=== PATIENT | male | born 1970 | race Caucasian/White ===

== ENCOUNTER 2016-08-19 11:59 | Emergency (ER) | payer OTHER ==
[~2016-08-19] VITALS: Ht 175.3 cm; Wt 90.8 kg
[2016-08-19 12:02] VITALS: TEMP 37.6; Ht 175.3 cm; Wt 90.8 kg
[2016-08-19] MEDS ORDERED: MULT-506 PO (12:38)
[2016-08-19] MEDS ORDERED: PANT40TA PO (12:38)
[2016-08-19] MEDS ORDERED: NAPR1TAB9 PO (12:38)
--- NOTE | 2016-08-19 12:43 | DIAGNOSTIC IMAGING REPORT ---
PA CHEST WITH LEFT-SIDED RIB SERIES CLINICAL HISTORY: Fall with left-sided chest pain. FINDINGS: A PA chest radiograph with 4 additional views from a left-sided rib series is compared to study dated 06/21/2012. The cardiomediastinal silhouette is unremarkable. The lungs and pleural spaces are clear. No pneumothorax is seen. A nondistracted left lateral fifth rib fracture is questioned on the rib series. No additional left-sided rib fracture is identified. There is a comminuted fracture through the mid to distal left clavicle with overriding of the fragments. There is mild thoracic scoliosis. IMPRESSION: 1. The lungs are clear. 2. Question a nondistracted left fifth rib fracture. Correlate for point tenderness. 3. There is a comminuted and overriding fracture through the mid to distal shaft of the left clavicle. Electronically signed by: Reginald Juan M.D. 08/19/2016 12:42 PM Dictated Date/Time: 08/19/2016 12:38 PM
--- NOTE | 2016-08-19 12:44 | DIAGNOSTIC IMAGING REPORT ---
LEFT SHOULDER 3 VIEWS CLINICAL HISTORY: Fall with left shoulder injury. FINDINGS: 3 views of left shoulder are obtained. No prior studies are available for comparison at the time of dictation. The skeletal structures are well mineralized. There is a comminuted fracture through the mid to distal shaft of the left clavicle. There is overriding of the fragments by at least 4.5 cm. The sternoclavicular and acromioclavicular joints appear preserved. Mild overlying soft tissue edema is noted. The glenohumeral articulation is preserved. Calcific tendinopathy is noted in left shoulder. The imaged left lung parenchyma appears clear. IMPRESSION: 1. There is a comminuted fracture through the mid to distal shaft of the left clavicle with overriding of the fragments. 2. No additional fracture is identified. 3. Calcific tendinopathy is noted. Electronically signed by: Reginald Juan M.D. 08/19/2016 12:43 PM Dictated Date/Time: 08/19/2016 12:42 PM
[2016-08-19] MEDS ORDERED: ACETAMINOPHEN 500 MG TAB PO STA (12:59)
[2016-08-19] MEDS ORDERED: OPTIRAY 320 IV PRN (13:30)
--- NOTE | 2016-08-19 14:38 | DIAGNOSTIC IMAGING REPORT ---
CT SCAN OF THE LEFT SHOULDER WITH IV CONTRAST CLINICAL HISTORY: Left clavicular fracture. Clinical concern for vascular injury. COMPARISON STUDY: Radiographs of the left shoulder dated 08/17/2016. TECHNIQUE: Following the IV administration of 118 cc Optiray 20, CT scan of the left shoulder is performed from the lower neck to the humeral shaft. Images are reviewed in the axial, sagittal, and coronal planes. IV contrast was administered without complication. 3-D reformats are created and assessed. CT DOSE: 795.84 mGy.cm FINDINGS: The skeletal structures are well mineralized. There is a comminuted fracture through the mid shaft of the left clavicle with small distracted fragments and overriding of the fragments by approximately 5.5 cm. The acromioclavicular and sternoclavicular joints appear preserved. The proximal humerus and scapula are intact. There is a nondistracted left anterior fifth rib fracture. The remaining visualized ribs appear intact. The visualized left lung parenchyma appears clear. There is no pneumothorax. The thoracic aorta is normal in caliber. The arch demonstrates standard three-vessel anatomy. The left subclavian artery is widely patent, as are the left axillary artery and the visualized portions of the left brachial artery. The subclavian vein is not well opacified. Hemorrhage is seen around the fracture. No active extravasation is seen. No large/organized hematoma is identified. Soft tissue edema is noted in the supraclavicular region. No intramuscular hematoma is seen. There is no left axillary lymphadenopathy. Calcific tendinopathy is noted in the left shoulder. A calcified sialolith is noted in the partially imaged left parotid gland. IMPRESSION: 1. There is a comminuted and overriding fracture through the midshaft of the left clavicle with small distracted fragments and surrounding hemorrhage. No organized hematoma is seen and no active extravasation is identified. 2. Nondistracted left anterior fifth rib fracture. 3. The left subclavian and axillary arteries are widely patent. 4. Calcific tendinopathy is noted in the left shoulder. Dictated: 08/19/2016 2:01 PM Transcribed: 08/19/2016 2:38 PM [email or web address] Electronically signed by: Reginald Juan M.D. 08/19/2016 2:40 PM Dictated Date/Time: 08/19/2016 2:01 PM
[2016-08-19] MEDS ORDERED: HYDR-5688 PO (15:04)
[2016-08-19 15:23] VITALS: BP 138/96; PULSE 79; O2SAT 100
--- NOTE | 2016-08-19 20:32 | EMERGENCY ROOM VISIT NOTE ---
ED Visit Note First contact with patient: 12:05 Chief Complaint: Left shoulder and rib pain. History of Present Illness: Mr. Davidson is a 46-year-old white male who ambulates into the ED accompanied by female friend complaining of left clavicle pain and left posterior rib pain. Patient reports approximately 14 hours ago slipped and fell on ice onto his left shoulder. Since that time he has been having left clavicle and rib pain. The pain has been constant and gradually increasing in intensity. He describes both of these pain is as a sharp sensation. He rates his discomfort 9/10. The pain is nonradiating. Clavicle pain worsens with palpation and any movements of the shoulder. The rib pain worsens with palpation and deep inspiration. He has not identified any alleviating factors related to the pain. He has not taken any medications for pain prior to arrival at the hospital. Associated with his clavicle pain he has noted increasing bruising and swelling. He denies lightheaded or dizziness before the fall, striking his head at the time of the fall, loss of consciousness at the time of the fall, all signs of head injury since the fall, neck pain, shortness of breath, difficulty breathing , abdominal pain, nausea, vomiting, left upper extremity weakness/numbness/ tingling, elbow pain, forearm pain, previous significant injuries or surgeries to the left shoulder or upper extremity. Review of Systems: As noted above in history of present illness. 8 body systems were reviewed and found to be negative as noted above. Past Medical History: Current Medications: Allergies to Medications: Social History: Physical Examination: Vital Signs: Temperature ; Blood Pressure ; Heart Rate ; Respiratory Rate GENERAL: -year-old female in mild to moderate distress due to pain, nontoxic- appearing, afebrile and hemodynamically stable. NEUROLOGICAL: Awake, alert and oriented to person, place and time. Answering questions appropriately and following commands. Normal gait. Good hand eye coordination. No focal motor sensory deficits. SKIN: Warm, dry and pink. No soft tissue eruptions or trauma noted. HEENT: Atraumatic and normocephalic. PERRL. Sclera white and conjunctiva pink. No drainage from naris. Oral cavity moist and pink. Pharynx is nonerythematous or edematous. Speech normal. No lymphadenopathy. Trachea midline. No jugular venous distention. BACK: No tenderness over the bony spine. No CVA tenderness. THORAX: Lungs sounds are clear to auscultation and equal bilaterally with symmetrical chest wall. No wheezing, rales or rhonchi. No crepitus, tenderness , subcutaneous air or deformities noted. HEART: Regular rate and rhythm. No gallops, rubs or murmurs are appreciated. ABDOMEN: Flat, soft and nontender. Positive bowel sounds in all quadrants. No guarding, rigidity or organomegaly. EXTREMITIES: Moves all extremities well on command and with purpose. All distal neurovascular statuses are intact and equal bilaterally. No calf tenderness or cords. ED Course: Patient is assessed as noted above. Left Shoulder X-Rays: Shows a comminuted fracture through the mid and distal shaft of the clavicle with overriding fragments. Left Rib Series: Showing a nondisplaced left fifth rib fracture. No pneumothorax. Left Shoulder CTA with IV Contrast: Were reviewed by myself and read by the radiologist showing the comminuted fracture of the clavicle, anterior fifth rib fracture and left clavicle and axillary vessels are patent. Also noted loli calcified adenopathy in the shoulder. Patient received ice for pain and swelling and at his request was given 1 g of acetaminophen by mouth for pain. Patient was reassessed multiple times during his stay in the emergency department. Patient's case was reviewed with Dr. Sanchez; we agreed on diagnostic approach, treatment, disposition and plan. Patient was placed in a shoulder harness and a shoulder immobilizer. Patient was educated about tonight's findings and instructed on his treatment plan; he verbalizes understanding and agreement with this plan. Clinical Impression: Left, related and overlapping clavicle fracture. Anterior left fifth rib fracture. Status post fall. Disposition: Patient discharged home in stable condition accompanied by his ; prior to departure he was reassessed and subjectively reported he was feeling much better and rated his discomfort 4/10. Plan: Comfort measures were discussed with the patient including the use of shoulder harness, sling, ice and a sliding pain medication scale including [place]; appropriate narcotic precautions were discussed with the patient. Patient was encouraged to call Dr. Pagan's office in the morning and request follow-up care and treatment. Patient was encouraged return the ED for worsening/uncontrolled pain, left upper extremity weakness/numbness/tingling, shortness of breath or any new/ concerning symptoms.
== END 2016-08-19 15:25 | disposition home or self-care (01) ==
LOC: C.EDB 12:01 → C.EDD 15:25
DX: S42.022A Displaced fracture of shaft of left clavicle, initial encounter for closed fracture (principal); S22.32XA Fracture of one rib, left side, initial encounter for closed fracture; W00.9XXA Unspecified fall due to ice and snow, initial encounter

== ENCOUNTER 2017-08-12 20:11 | Emergency (ER) | payer OTHER ==
[~2017-08-12] VITALS: Ht 175.3 cm; Wt 93.9 kg
[~2017-08-12 20:11] MED LIST: MULT-506 PO; NAPR1TAB9 PO; PANT40TA PO
[2017-08-12 20:50] VITALS: Ht 175.3 cm; Wt 93.9 kg
[2017-08-12] MEDS ORDERED: PRED10TA PO (21:10)
[2017-08-12] MEDS ORDERED: FLUT0.15 NAE (21:10)
[2017-08-12] MEDS ORDERED: CLR10 PO (21:10)
[2017-08-12 21:26] LABS: BASO % 0.4 %; BASO ABS # 0.05 K/uL (0-0.2); EOS % 0.2 %; EOS ABS # 0.03 K/uL (0-0.5); HEMATOCRIT 41.3 % (42-52); HEMOGLOBIN 14.4 g/dL (14.0-18.0); IG# 0.03 K/uL (0.00-0.02); LYMPH % 25.5 %; LYMPH ABS # 3.58 K/uL (1.2-3.4); MEAN CELL VOLUME 88.4 fL (80-100); MEAN CORPUSCULAR HEMOGLOBIN 30.8 pg (25-34); MEAN CORPUSCULAR HGB CONC 34.9 g/dl (32-36); MEAN PLATELET VOLUME 10.4 fL (7.4-10.4); MONO % 7.2 %; MONO ABS # 1.01 K/uL (0.11-0.59); NEUT % 66.5 %; NEUT ABS # 9.36 K/uL (1.4-6.5); PLATELET COUNT 291 K/uL (130-400); RED CELL DISTRIBUTION WIDTH CV 13.5 % (11.5-14.5); RED CELL DISTRIBUTION WIDTH SD 43.5 fL (36.4-46.3); WHITE BLOOD COUNT 14.06 K/uL (4.8-10.8)
[2017-08-12 21:42] LABS: ALBUMIN 3.9 gm/dl (3.4-5.0); CREATININE 0.93 mg/dl (0.60-1.40); POTASSIUM 3.7 mmol/L (3.5-5.1)
[2017-08-12 21:45] LABS: TOTAL PROTEIN 8.2 gm/dl (6.4-8.2)
--- NOTE | 2017-08-12 21:50 | DIAGNOSTIC IMAGING REPORT ---
MASTOIDS-ORB/SELLA/TEMP W/O CLINICAL HISTORY: right otalgia, mastoid tenderness pain TECHNIQUE: Transaxial acquisition with multi axial reformatted images COMPARISON STUDY: None FINDINGS: The right as well as left mastoid air cells are primarily clear. Right mastoid air cells show no evidence for a destructive process. The ossicles of the middle ear appear intact. Tympanic membrane and scutum show no evidence for disruption. The attic is clear. The right external auditory canal is patent. The left external auditory canal shows evidence for soft tissue lateral as well as medial to the tympanic membrane. The tympanic membrane specifically is not identified as a separate entity. The ossicles of the middle ear appear to be present with no evidence for erosion of the scutum. There is a small amount of mucosal thickening of the superior margin of the attic with minimal mucosal thickening change of the surrounding mastoid air cells. The semicircular canals appear patent. The internal auditory canals show no evidence for expansion. There is soft tissue within the middle ear surrounding components of the ossicles. His note is made of considerable mucosal thickening of the left maxillary sinus with minimal changes seen at the base of the right maxillary sinus. There are mild hypertrophic changes of the nasal turbinates. IMPRESSION: 1. Normal right mastoid and middle ear structures. 2. Abnormal soft tissue encompassing components of the ossicles of the left middle ear as well as components of the external auditory canal, tympanic membrane, and minimally at the attic. 3. Given the absence of erosive or destructive changes on the left, the appearance suggests an inflammatory process of the middle ear with moderate involvement of the external auditory canal. 4. If this does not resolve with appropriate treatment , the possibility of a cholesteatoma would have to be considered. 5. Significant mucosal thickening of the left maxillary sinus 6. ENT consultation is suggested The above report was generated using voice recognition software. It may contain grammatical, syntax or spelling errors. Electronically signed by: Brendon Cordero M.D. 08/12/2017 9:49 PM Dictated Date/Time: 08/12/2017 9:41 PM
--- NOTE | 2017-08-12 22:01 | EMERGENCY ROOM VISIT NOTE ---
History First contact with patient: 20:52 Chief Complaint: EAR PAIN Stated Complaint: SEVERE L EAR PAIN History of Present Illness The patient is a 47 year old male who presents to the Emergency Room with complaints of severe left ear pain which began approximately 1 week ago. The patient states the pain worsened over the weekend, and he was seen at [facility] yesterday. He was diagnosed at that time with eustachian tube dysfunction and was also advised that his left turbinates appeared inflamed, but not infectious. He was started on prednisone, and is currently on a taper from 50 mg to 10 mg. He has taken 2 doses of 50 mg prednisone, and states he has not noted significant improvement. In fact, this evening, he states the pain became unbearable and severe. He states symptoms seem to be worsening despite any activity or medications. There has been no drainage from the ear. He states he is noticing significantly muffled hearing in the left ear, but denies any ringing. He states he can hear his heartbeat within that ear. The patient has not seen his primary care provider or any other providers. He does not have history of ear infections or drainage from the ear. He has never seen ENT. He states he believes he began running a low grade fever at this evening of approximately 99F. He denies any recent sinus infection, and denies any congestion, runny nose, sore throat, fever, chills, nausea, vomiting, chest pain , cough, or other recent illness. He denies significant history of ear infections. Review of Systems A complete 10 point review of systems was reviewed with the patient with pertinent positives and negatives as per history of present illness. All else were negative. Past Medical/Surgical History GERD Social History Smoking Status: Never Smoker Smokeless Tobacco Use: No Alcohol Use: occasionally Drug Use: none Marital Status: Housing Status: lives with family Occupation Status: employed Current/Historical Medications Scheduled Amoxicillin & Pot Clavulanate (Augmentin 875-125 mg), 1 TAB PO BID Multivitamin (Multivitamin), 1 TAB PO DAILY Pantoprazole (Protonix), 40 MG PO QAM Prednisone Tab (Prednisone), 10 MG PO UD Scheduled PRN Fluticasone Propionate (Nasal) (Flonase Allergy Relief), 2 SPRAYS PARVEZ DAILY PRN for Allergy Sympoms Loratadine (Claritin), 10 MG PO DAILY PRN for Allergy Symptoms Naproxen (Aleve), 220 MG PO Q12 PRN for Pain Oxycodone Ir (Roxicodone Ir), 1-2 TAB PO Q4H PRN for Pain Physical Exam Vital Signs Date Time Temp Pulse Resp B/P (MAP) Pulse Ox O2 Delivery O2 Flow Rate FiO2 08/12/17 22:07 37.2 73 18 115/76 97 Room Air 08/12/17 20:50 37.5 73 18 165/107 97 Room Air Physical Exam VITALS: Vitals are noted on the nurse's note and reviewed by myself. Vital signs stable. GENERAL: This is a 47-year-old white male, in no acute distress, nondiaphoretic , well-developed well-nourished. SKIN: The skin was without rashes, erythema, edema, or bruising. There is no tenting of the skin. Capillary reflex less than 2 seconds. HEAD: Normocephalic atraumatic. EARS: Right external auditory canal clear, tympanic membrane pearly sorensen without erythema or effusion. Left external auditory canal is edematous with purulent drainage. There is no obvious erythema or debris within the canal. TM was not visualized. There is tenderness of the left mastoid and preauricular nodes. No significant facial swelling or edema appreciated on my examination. EYES: Pupils equal round and reactive to light and accommodation. Conjunctivae without injection, sclerae without icterus. Extraocular movements intact. NOSE: Patent, turbinates without inflammation or discharge. No sinus tenderness. MOUTH: Mucous membranes moist. Tonsils are not enlarged. Pharynx without erythema or exudate. Uvula midline. Airway patent. Tongue does not deviate. NECK: Supple without nuchal rigidity. No lymphadenopathy. No thyromegaly. Cervical spine is nontender. No JVD. HEART: Regular rate and rhythm without murmurs gallops or rubs. LUNGS: Clear to auscultation bilaterally without wheezes, rales or rhonchi. No dullness to percussion. No retractions or accessory muscle use. ABDOMEN: Positive bowel sounds x 4. Normal tympanic percussion. Soft, nontender, without masses or organomegaly. Colbert sign negative. No guarding or rebound tenderness. MUSCULOSKELETAL: No muscle atrophy, erythema, or edema noted. Full range of motion without joint tenderness in all extremities. No tenderness to palpation. Normal gait. Strength 5/5 throughout. NEURO: Patient was alert and oriented to person place and time. Normal sensation to light and sharp touch. Deep tendon reflexes 2+ throughout. No focal neurological deficits. Medical Decision & Procedures ER Provider Diagnostic Interpretation: MASTOIDS-ORB/SELLA/TEMP W/O CLINICAL HISTORY: right otalgia, mastoid tenderness pain TECHNIQUE: Transaxial acquisition with multi axial reformatted images COMPARISON STUDY: None FINDINGS: The right as well as left mastoid air cells are primarily clear. Right mastoid air cells show no evidence for a destructive process. The ossicles of the middle ear appear intact. Tympanic membrane and scutum show no evidence for disruption. The attic is clear. The right external auditory canal is patent. The left external auditory canal shows evidence for soft tissue lateral as well as medial to the tympanic membrane. The tympanic membrane specifically is not identified as a separate entity. The ossicles of the middle ear appear to be present with no evidence for erosion of the scutum. There is a small amount of mucosal thickening of the superior margin of the attic with minimal mucosal thickening change of the surrounding mastoid air cells. The semicircular canals appear patent. The internal auditory canals show no evidence for expansion. There is soft tissue within the middle ear surrounding components of the ossicles. His note is made of considerable mucosal thickening of the left maxillary sinus with minimal changes seen at the base of the right maxillary sinus. There are mild hypertrophic changes of the nasal turbinates. IMPRESSION: 1. Normal right mastoid and middle ear structures. 2. Abnormal soft tissue encompassing components of the ossicles of the left middle ear as well as components of the external auditory canal, tympanic membrane, and minimally at the attic. 3. Given the absence of erosive or destructive changes on the left, the appearance suggests an inflammatory process of the middle ear with moderate involvement of the external auditory canal. 4. If this does not resolve with appropriate treatment , the possibility of a cholesteatoma would have to be considered. 5. Significant mucosal thickening of the left maxillary sinus 6. ENT consultation is suggested The above report was generated using voice recognition software. It may contain grammatical, syntax or spelling errors. Electronically signed by: Brendon Cordero M.D. 08/12/2017 9:49 PM Dictated Date/Time: 08/12/2017 9:41 PM Laboratory Results 08/12/17 21:14 Red Blood Count 4.67, Mean Corpuscular Volume 88.4, Mean Corpuscular Hemoglobin 30.8, Mean Corpuscular Hemoglobin Concent 34.9, Mean Platelet Volume 10.4, Neutrophils (%) (Auto) 66.5, Lymphocytes (%) (Auto) 25.5, Monocytes (%) (Auto) 7.2, Eosinophils (%) (Auto) 0.2, Basophils (%) (Auto) 0.4, Neutrophils # (Auto) 9.36, Lymphocytes # (Auto) 3.58, Monocytes # (Auto) 1.01, Eosinophils # (Auto) 0.03, Basophils # (Auto) 0.05 08/12/17 21:14 Test 08/12/17 21:14 White Blood Count 14.06 K/uL (4.8-10.8) Red Blood Count 4.67 M/uL (4.7-6.1) Hemoglobin 14.4 g/dL (14.0-18.0) Hematocrit 41.3 % (42-52) Mean Corpuscular Volume 88.4 fL (80-100) Mean Corpuscular Hemoglobin 30.8 pg (25-34) Mean Corpuscular Hemoglobin Concent 34.9 g/dl (32-36) Platelet Count 291 K/uL (130-400) Mean Platelet Volume 10.4 fL (7.4-10.4) Neutrophils (%) (Auto) 66.5 % Lymphocytes (%) (Auto) 25.5 % Monocytes (%) (Auto) 7.2 % Eosinophils (%) (Auto) 0.2 % Basophils (%) (Auto) 0.4 % Neutrophils # (Auto) 9.36 K/uL (1.4-6.5) Lymphocytes # (Auto) 3.58 K/uL (1.2-3.4) Monocytes # (Auto) 1.01 K/uL (0.11-0.59) Eosinophils # (Auto) 0.03 K/uL (0-0.5) Basophils # (Auto) 0.05 K/uL (0-0.2) RDW Standard Deviation 43.5 fL (36.4-46.3) RDW Coefficient of Variation 13.5 % (11.5-14.5) Immature Granulocyte % (Auto) 0.2 % Immature Granulocyte # (Auto) 0.03 K/uL (0.00-0.02) Anion Gap 5.0 mmol/L (3-11) Est Creatinine Clear Calc Drug Dose 109.9 ml/min Estimated GFR () 112.1 Estimated GFR (Non- 96.7 BUN/Creatinine Ratio 22.3 (10-20) Calcium Level 9.0 mg/dl (8.5-10.1) Total Bilirubin 0.2 mg/dl (0.2-1) Aspartate Amino Transf (AST/SGOT) 24 U/L (15-37) Alanine Aminotransferase (ALT/SGPT) 35 U/L (12-78) Alkaline Phosphatase 72 U/L (45-117) Total Protein 8.2 gm/dl (6.4-8.2) Albumin 3.9 gm/dl (3.4-5.0) Globulin 4.3 gm/dl (2.5-4.0) Albumin/Globulin Ratio 0.9 (0.9-2) ED Course The patient was seen and evaluated as above. IV access obtained, labs drawn. CT scan of the mastoids ordered and reviewed by myself and radiologist as above. I discussed the case with Dr. Luna. He did recommend consult with ENT. I discussed the findings with the patient at bedside. I consulted with Dr. Salvador via phone at approximately 1030. His recommendation was for Ciprodex otic drops, pain medications, and p.o. Augmentin with close outpatient follow-up in the office. He did recommend the patient call the office tomorrow and he will establish follow-up at that time. I discussed my conversation with the patient and his at bedside. The patient was given Ciprodex drops, Augmentin, and oxycodone while here. He was given home packs of the medications as well so he can take them first thing tomorrow morning. Discharge instructions reviewed, the patient was discharged home in good condition. Medical Decision This is a 47-year-old white male patient who presents to the emergency department today complaining of severe left otalgia 1 week. The pain became unbearable this evening, and has not responded to prednisone or Tylenol. The patient has not been ill recently with a cold or congestion. He has never had anything like this happen in the past. He denies any drainage from the ear. On examination, the patient does appear to have purulent drainage within the left ear canal associated with some edema. There is no significant facial edema , but the patient does have tenderness of the left mastoid on palpation. Because of this, I was concerned for mastoiditis, so CT scan was ordered and reviewed as above. With the CT scan findings, I did follow up with Dr. Salvador as above. The patient will be treated with oral antibiotics, otic antibiotic drops, and pain medication. He will have close follow-up with Dr. Dent tomorrow or later this week. All questions were answered to the patient and his family's satisfaction. Differential diagnosis includes otitis media, otitis externa, mastoiditis, cholesteatoma, acute sinusitis, eustachian tube dysfunction, tinnitus, trauma, malignancy, and others [place] Drug Monitoring Program Search Results: patient reviewed within database, no issues identified Medication Reconcilliation Current Medication List: was personally reviewed by me Blood Pressure Screening Patient's blood pressure: Elevated blood pressure Blood pressure disposition: Elevated BP felt to be situational Impression Primary Impression: Otitis media Additional Impression: Otitis externa Departure Information Dispostion Home / Self-Care Condition GOOD Prescriptions Oxycodone Ir (Roxicodone Ir) 5 Mg Tab 1-2 TAB PO Q4H Y for Pain, #15 TAB For Initial Treatment Prov: Denise Pollard PA-C 08/12/17 Amoxicillin & Pot Clavulanate (Augmentin 875-125 mg) 1 Tab Tab 1 TAB PO BID for 10 Days, #20 TAB Prov: Denise Pollard PA-C 08/12/17 Referrals Thomas Flores M.D. (PCP) Olman Salvador M.D. Patient Instructions ED Otitis Externa, ED Otitis Media Acute Adult, [facility] Additional Instructions You were seen in the emergency department today for severe left ear pain. CT scan did show evidence for acute otitis media as well as otitis externa. There is concern for possible cholesteatoma if symptoms do not improve with antibiotics. Amoxicillin Clavulanate (Augmentin) 875mg: Take one pill twice daily for 10 days for your infection. All antibiotics can cause diarrhea. If this occurs and you feel worse or it does not resolve in 1-2 days follow up with your doctor or return to the Emergency Department as this could be signs of serious underlying problems. Any medication can cause an allergic reaction, stop the pills immediately and return to the ER for rash, hives, breathing difficulties, or swelling. You were prescribed Ciprodex antibiotic drops to be used in the affected ear, 4 drops twice daily x7 days. Ibuprofen(Motrin, Advil) may be used for fever or pain. Use 600mg every six hours as needed. Take with food. Avoid using more than 2400mg in a 24 hour period. Do not use 2400mg per day for more than three consecutive days without physician direction. Prolonged inappropriate use can lead to stomach upset or ulcers. Do not take this medication while on steroids. (AND/OR) Acetaminophen(Tylenol) may be used for fever or pain. Use 1000mg every six hours as needed. Avoid using more than 3000mg in a [address] Please contact Dr[address] Salvador's office at the number provided tomorrow morning to establish follow-up. Please asked at that time recommendations on steroids. Return to the emergency department for significantly worsening pain, swelling, fever, chills, or other concerning symptoms. Work Instructions Return To Work: 3 days Problem Qualifiers Primary Impression: Otitis media Otitis media type: suppurative Chronicity: acute Laterality: left Recurrence: not specified as recurrent Spontaneous tympanic membrane rupture: without spontaneous rupture Qualified Codes: H66.002 - Acute suppurative otitis media without spontaneous rupture of ear drum, left ear Additional Impression: Otitis externa Otitis externa type: diffuse Chronicity: acute Laterality: left Qualified Codes: H60.312 - Diffuse otitis externa, left ear
[2017-08-12] MEDS ORDERED: OXYCODONE HCL IR 5 MG TAB (IMMEDIATE RELEASE) PO STA (22:25)
[2017-08-12] MEDS ORDERED: OXYCODONE IR HOME PACK PO STA (22:25)
[2017-08-12] MEDS ORDERED: CIPRO 0.2%/HYDROCORTISONE 1% OTIC SUSP 10 ML BTL OT STA (22:25)
[2017-08-12] MEDS ORDERED: AMOXICILLIN/CLAVULANATE TAB 875 MG TAB PO STA ×2 (22:25)
[2017-08-12] MEDS ORDERED: AMOX875T PO (22:40)
[2017-08-12] MEDS ORDERED: OXYC1TAB3 PO (22:40)
[2017-08-12 23:15] VITALS: BP 139/92; PULSE 60; TEMP 37; O2SAT 99
== END 2017-08-12 23:22 | disposition home or self-care (01) ==
LOC: C.EDB 20:12 → C.EDA 23:22
DX: H66.002 Acute suppurative otitis media without spontaneous rupture of ear drum, left ear (principal); H60.312 Diffuse otitis externa, left ear; K21.9 Gastro-esophageal reflux disease without esophagitis; Z79.899 Other long term (current) drug therapy